=== PATIENT | female | born 1985 | race Caucasian/White ===

== ENCOUNTER 2021-11-29 23:51 | Emergency (ER) | payer OTHER ==
[~2021-11-29] VITALS: Ht 170.2 cm; Wt 55.5 kg
[~2021-11-29 23:51] MED LIST: AZIT250T PO; BENZ-16 PO; CEPH-571 PO; CLIN300C19 PO; PSEU120T55 PO
[2021-11-30 00:20] VITALS: BP 117/72
[2021-11-30] MEDS ORDERED: DOXY-1 PO (00:41)
[2021-11-30] MEDS ORDERED: DOXYCYCLINE 100MG CAPSULE PO STA (00:46)
== END 2021-11-30 00:58 | disposition home or self-care (01) ==
LOC: ER 23:52
DX: L70.9 Acne, unspecified (principal); F12.10 Cannabis abuse, uncomplicated; Z88.2 Allergy status to sulfonamides; Z88.8 Allergy status to other drugs, medicaments and biological substances; Z88.0 Allergy status to penicillin; Z79.899 Other long term (current) drug therapy
CPT/HCPCS: 99283

== ENCOUNTER 2022-01-01 13:24 | Emergency (ER) | payer OTHER ==
[~2022-01-01] VITALS: Ht 170.2 cm; Wt 56.8 kg
[2022-01-01 13:34] VITALS: BP 127/74
[2022-01-01] MEDS ORDERED: LOFE0.18 PO (14:48)
--- NOTE | 2022-01-01 16:09 | NUR ---
Patient called and requesting to be prescribed clonidine because the medication that she requested she can not get. I told her I would speak with the provider that saw her. Patient agreed. I spoke with Kezia YOON who stated that he has prescribed the patient exactly what she wanted and sent it to the pharmacy that she wanted. Patient was also prescribed clonidine 12/14/21 per external med history. Kezia YOON stated that he could not prescribe more due to this. I notified patient regarding this and she stated that she did not know where it was. Patient them proceeded to shout, "Do you want me to relapse, Bitch? I just got out of rehab and you guys are going to help me? Do you want me to just go take some fentanyl?" I asked why she was shouting at me, and she continued to yell that we weren't going to help her and she just got out of rehab. I stated that we were helping her and that the provider had given her a prescription to help. Patient then shouted into the phone, "Fine, I'll just go relapse then Bitch!" and hung up.
== END 2022-01-01 14:59 | disposition home or self-care (01) ==
LOC: ER 13:24
DX: F11.90 Opioid use, unspecified, uncomplicated (principal); F12.90 Cannabis use, unspecified, uncomplicated; Z76.0 Encounter for issue of repeat prescription; Z86.14 Personal history of Methicillin resistant Staphylococcus aureus infection; Z98.890 Other specified postprocedural states; Z56.0 Unemployment, unspecified; Z88.1 Allergy status to other antibiotic agents; Z88.0 Allergy status to penicillin; Z88.8 Allergy status to other drugs, medicaments and biological substances; Z79.2 Long term (current) use of antibiotics; Z79.899 Other long term (current) drug therapy
CPT/HCPCS: 99281

== ENCOUNTER 2023-02-02 20:11 | Emergency (ER) | payer MEDICAID ==
[~2023-02-02] VITALS: Ht 170.2 cm; Wt 63.6 kg
[~2023-02-02 20:11] MED LIST changes: +LOFE0.18 PO
[2023-02-02 20:39] VITALS: BP 129/67
[2023-02-02 21:55] LABS: BASOPHILS % (AUTO) 0.6 % (0-1); EOSINOPHILS # (AUTO) 0.1 X10'3 (0-0.9); EOSINOPHILS % (AUTO) 1.2 % (0-6); HEMOGLOBIN 11.3 g/dl (12.0-16.0); LYMPHOCYTES # (AUTO) 1.1 X10'3 (1.1-4.8); LYMPHOCYTES % (AUTO) 20.6 % (21-51); MEAN CORPUSCULAR HEMOGLOBIN 28.7 PG (27.0-31.0); MEAN CORPUSCULAR HGB CONC 34.3 g/dL (33.0-36.5); MEAN CORPUSCULAR VOLUME 83.7 FL (78-98); MEAN PLATELET VOLUME 8.2 FL (7.4-10.4); MONOCYTES # (AUTO) 0.3 X10'3 (0-0.9); MONOCYTES % (AUTO) 6.7 % (2-12); NEUTROPHILS # (AUTO) 3.6 X10'3 (1.8-7.7); NEUTROPHILS % (AUTO) 70.9 % (42-75); PLATELET COUNT 168 X10'3 (140-440); RED BLOOD COUNT 3.95 X10'6 (4.20-5.60); RED CELL DISTRIBUTION WIDTH 17.1 % (11.5-14.5); WHITE BLOOD COUNT 5.1 X10'3 (4.5-11.0)
[2023-02-02] MEDS ORDERED: clindamycin 150mg capsule PO ONE (22:05)
[2023-02-02 22:07] LABS: ALANINE AMINOTRANSFERASE 18 U/L (12-78); ALBUMIN 3.3 G/DL (3.4-5.0); ALKALINE PHOSPHATASE 68 IU/L (46-116); ANION GAP 7 (8-16); ASPARTATE AMINO TRANSFERASE 29 U/L (10-37); BILIRUBIN,TOTAL 0.2 MG/DL (0.1-1.0); BLOOD UREA NITROGEN 17 MG/DL (7-18); CALCIUM 8.5 MG/DL (8.5-10.1); CHLORIDE 106 MMOL/L (99-107); CREATININE 0.81 MG/DL (0.40-0.90); GLUCOSE 128 MG/DL (70-104); POTASSIUM 4.3 MMOL/L (3.5-5.1); SODIUM 138 MMOL/L (135-145); TOTAL CARBON DIOXIDE 24.8 MMOL/L (24-32); TOTAL PROTEIN 6.5 G/DL (6.4-8.2); eGFR 80 ML/MIN
== END 2023-02-02 22:18 | disposition home or self-care (01) ==
LOC: ER 20:11
DX: K04.7 Periapical abscess without sinus (principal); R53.83 Other fatigue; F12.90 Cannabis use, unspecified, uncomplicated; Z86.14 Personal history of Methicillin resistant Staphylococcus aureus infection; Z98.890 Other specified postprocedural states; Z56.0 Unemployment, unspecified; Z88.2 Allergy status to sulfonamides; Z88.0 Allergy status to penicillin; Z88.8 Allergy status to other drugs, medicaments and biological substances
CPT/HCPCS: 36415; 80053; 85025; 99283

== ENCOUNTER 2024-02-07 17:52 | Emergency (ER) | payer MEDICAID ==
[~2024-02-07] VITALS: Ht 170.2 cm; Wt 62.7 kg
[~2024-02-07 17:52] MED LIST changes: +CLOB15CR11 TOP; +DIPH-423 PO
[2024-02-07] MEDS: dexamethasone sod phosphate 10mg/ml inj PO STA (18:51)
[2024-02-07] MEDS: ipratropium/albuterol 3ml nebule NEB STA (18:55)
[2024-02-07 19:04] VITALS: PULSE 119; RESP 22; O2SAT 94
[2024-02-07 19:07] VITALS: PULSE 121; RESP 22; O2SAT 96
[2024-02-07] MEDS ORDERED: ALBU8HFA INH (19:10)
[2024-02-07] MEDS ORDERED: PRED20TA PO (19:10)
[2024-02-07] MEDS ORDERED: PROM118S5 PO (19:10)
[2024-02-07] MEDS: CefTRIAXone 1000mg IM Kit (w/lidocaine diluent) IM ONE (19:20)
[2024-02-07 19:27] VITALS: BP 144/80; PULSE 110; RESP 20; TEMP 98.8; O2SAT 97
== END 2024-02-07 19:28 | disposition home or self-care (01) ==
LOC: ER 17:53
DX: J18.9 Pneumonia, unspecified organism (principal); F12.90 Cannabis use, unspecified, uncomplicated; Z88.2 Allergy status to sulfonamides; Z88.0 Allergy status to penicillin; Z79.2 Long term (current) use of antibiotics; Z79.899 Other long term (current) drug therapy; Z98.890 Other specified postprocedural states
CPT/HCPCS: 71045; 94640; 96372; 99283; J0696; J1100; 94760

== ENCOUNTER 2024-02-13 10:33 | Emergency (ER) | payer MEDICAID ==
[~2024-02-13] VITALS: Ht 170.2 cm; Wt 63.6 kg
[~2024-02-13 10:33] MED LIST changes: +ALBU8HFA INH; +PRED20TA PO
[2024-02-13 10:54] VITALS: BP 112/66; PULSE 97; TEMP 98; O2SAT 100
[2024-02-13 12:31] VITALS: RESP 16
[2024-02-13] MEDS ORDERED: BENZ-38 PO (12:39)
[2024-02-13] MEDS ORDERED: AZIT250T83 PO (12:39)
[2024-02-13] MEDS ORDERED: ALBU8HFA INH (12:39)
== END 2024-02-13 12:50 | disposition home or self-care (01) ==
LOC: ER 10:33
DX: J06.9 Acute upper respiratory infection, unspecified (principal); F12.90 Cannabis use, unspecified, uncomplicated; Z88.0 Allergy status to penicillin; Z88.8 Allergy status to other drugs, medicaments and biological substances; Z79.2 Long term (current) use of antibiotics; Z79.899 Other long term (current) drug therapy; Z98.890 Other specified postprocedural states; Z56.0 Unemployment, unspecified
CPT/HCPCS: 71046; 99283

== ENCOUNTER 2025-04-16 14:17 | Emergency (ER) | payer MEDICAID ==
[~2025-04-16] VITALS: Ht 170.2 cm; Wt 61.1 kg
[~2025-04-16 14:17] MED LIST changes: -ALBU8HFA INH; -LOFE0.18 PO; -PRED20TA PO; +[UNRECOGNIZED DRUG - CODE] PO
[2025-04-16 14:46] VITALS: BP 123/86; PULSE 85; RESP 16; O2SAT 100
--- NOTE | 2025-04-16 15:15 | Physician Documentation ---
History of Present Illness ~ Chief Complaint: Finger pain Stated Complaint: FINGER PAIN Time Seen by MD: 15:02 Primary Medical Doctor: no pmd HPI This is a 39-year-old female who presents with a tooth pick stuck under her left 4th fingernail, patient reports that it has been present for the last three days and she is unable to pull it out. Patient reports no other acute symptoms or concerns including no fever. Patient reports up-to-date on tetanus. Tetanus within 5 years: No Medication Reconciliation Allergies: Coded Allergies: sulfamethoxazole (Verified Allergy, Severe, skin sluffing, 04/16/25) trimethoprim (Verified Allergy, Severe, skin sluffing, 04/16/25) Penicillins (Unverified Allergy, Intermediate, 04/16/25) Scheduled Azithromycin (Zithromax), 1 DOSPAK PO UD Cephalexin (Keflex), 1 CAP PO QID Clindamycin Hcl (Clindamycin Hcl), 1 CAP PO QID Clobetasol Propionate/Emoll (Clobetasol Emollient 0.05% Crm), 1 APPLIC TOP Q12H Diphenhydramine Hcl (Benadryl), 50 MG PO Q6H PRN ITCHING Lofexidine HCl (Lucemyra), 1 TAB PO QID Pseudoephedrine Hcl (Sudafed 12-Hour), 1 TABLET PO BID Scheduled PRN Benzonatate* (Tessalon Perles*), 100 MG PO Q8H PRN for cough Past Medical History Past Medical History: MRSA Abscess, *PSYCH* Past Surgical History: , orthopedic surgeries, other Alcohol Use: None Drug Use: marijuana Lives with: Mother Lives In: Home Occupation: unemployed Review of Systems ROS As stated above in the HPI, otherwise all systems are reviewed and negative. Physical Exam Vital Signs: Temperature: 98.1, Source: Temporal, Heart Rate: 85, Respiratory Rate: 16, BP: 123/86, Pulse Oximetry: 100, Weight: 61.100 Oxygen Flow Rate: 0 Physical Exam VITALS: Reviewed and as above. GENERAL: Alert, nontoxic appearing, no apparent distress. RESPIRATORY: No increased work of breathing, no respiratory distress, speaking in full clear sentences MUSCULOSKELETAL: Foreign body observed under left 4th fingernail, no erythema or swelling to left 4th finger Procedures Procedures Foreign body removal from under fingernail Procedure to remove potential retained foreign body from under 4th finger of left hand Procedure was explained to patient and consent obtained, the finger of left hand was anesthetized utilizing a ring block with 6 mL of 1% lidocaine without epinephrine achieving adequate anesthesia, the fingernail was lifted utilizing blunt dissection with iris scissor and needle limb driver, the area of potential foreign body was visualized with no evidence of retained foreign body. There was minimal bleeding and patient tolerated procedure well without complications. Bleeding controlled with direct pressure with 2 x 2 gauze. Progress Results/Orders Results/Orders Completed Orders - [facility] Lidocaine 1% 30ml Vial (Xylocaine 1% Via (04/16/25 15:15) Vital Signs 04/16/25 04/16/25 14:46 17:34 Temp 98.1 98.1 Pulse 85 Resp 16 B/P (MAP) 123/86 Pulse Ox 100 O2 Flow Rate 0 Medical Decision Making Findings This 39-year-old female presented with concern for foreign body under her left 4th finger nail. On evaluation after lifting nail there was no foreign body visualized, there appeared to be a wound track that likely had a small amount of dried blood in it causing the appearance of the retained foreign body below the fingernail, this explanation supported by the discomfort patient reported under her fingernail. As no foreign body was seen the wound was dressed and patient will be discharged home to allow wound to heal patient given home care instructions to include keeping the area clean dry and covered. Finger Diff Dx:Considerations: Include: Abrasion, Cellulitis, Hematoma, Laceration, Neurovascular injury, Subungual hematoma, Other (Retained foreign body) Departure Time of Disposition: 17:25 Disposition: 01 HOME / SELF CARE / HOMELESS Impression: Primary Impression: Fingernail injury Qualified Codes: S69.92XA - Unspecified injury of left wrist, hand and finger(s), initial encounter Condition: Improved Additional Instructions: Keep the area clean dry and covered, you may use ibuprofen and or Tylenol as needed for pain. Please follow up with your primary care provider in the next few days. Please return to the emergency department for any new or worsening concerning symptoms. Referrals: NO PRIMARY CARE PROVIDER (PCP) Education Educated: Patient Educated regarding: diagnosis, treatment, prognosis, need for follow up Signature Scribe Signature: No scribe Attestation: The note accurately reflects work and decisions made by me.VIJAYA Johnson 04/16/25 17:27 [facility] Apr 16, 2025 15:15
[2025-04-16] MEDS: LIDOcaine 1% 30ml preserv. free vial IJ STA (15:52)
[2025-04-16 17:34] VITALS: TEMP 98.1
== END 2025-04-16 17:36 | disposition home or self-care (01) ==
LOC: ER 14:17
DX: S60.455A Superficial foreign body of left ring finger, initial encounter (principal); F12.90 Cannabis use, unspecified, uncomplicated; Z88.2 Allergy status to sulfonamides; Z88.0 Allergy status to penicillin; Z88.8 Allergy status to other drugs, medicaments and biological substances; Z79.899 Other long term (current) drug therapy; Z56.0 Unemployment, unspecified; W22.8XXA Striking against or struck by other objects, initial encounter; Y93.89 Activity, other specified; Y92.89 Other specified places as the place of occurrence of the external cause; Y99.8 Other external cause status
CPT/HCPCS: 64450; 99284